=== PATIENT | female | born 1965 | race Caucasian/White ===

== ENCOUNTER 2019-09-21 12:22 | Outpatient (CLI) | payer BC ==
[~2019-09-21] VITALS: Ht 162.6 cm; Wt 110.6 kg
--- NOTE | ~2019-09-21 | HEMODYNAMI ---
PATIENT:SYL TOUSSAINT MEDICAL RECORD: [id number] : 63 LOCATION:D.CAT ADMISSION DATE: 09/21/19 Generatedon:09/21/201915:38 Patient name: SYL TOUSSAINT Patient #: [id number] SSN: [id number] : 1965 Date of study: 09/21/2019 Page: Of Hemodynamic Procedure Report Patient Data Patient Demographics Procedure consent was obtained First Name: SYL Gender: Female Last Name: NORBERT : 1965 Middle Initial: RAZA Age: 53 year(s) Patient #: [id number] Race: SSN: [id number] Additional ID: [id number] Contact details [address]: [address] [place] [address] [address]IVE State: [place] City: [place] Zip code: [address] Past Medical History Allergies Allergen Reaction Date Comments Reported Other allergy 09/21/2019 avelox Admission Admission Data Admission Date: 09/21/2019 Admission Time: 12:22 Arrival Date: 09/21/2019 Arrival Time: 0:00 Admit Source: Other Insurance Payor: Private health insurance [facility] #: [id number] Height (in.): 63.78 BSA: 2.13 (m2) Height (cm.): 162 BMI: 42.3 (kg/m2) Weight (lbs.): 244.71 Weight (kg.): 111 Lab Results Lab Result Date: 09/21/2019 Lab Result Time: 0:00 Biochemistry Name Units Result Min Max BUN mg/dl 13 --(--*-)-- 7 18 Creatinine mg/dl 0.8 --(-*--)-- 0.6 1.3 eGFR ml/min 79.42659 *-(----)-- 90 120 NONAFRICAN CBC Name Units Result Min Max Hematocrit % 40.9 -*(----)-- 42 54 Hemoglobin g/dl 13.4 -*(----)-- 13.5 17.5 Procedure Procedure Types Cath Procedure Diagnostic Procedure [facility] w/Coronaries Sedation Charges Moderate Sedation up to 30 minutes Procedure Description Procedure Date Procedure Date: 09/21/2019 Procedure Start Time: 15:09 Procedure End Time: 15:36 Procedure Staff Name Function Ferny Viveros MD Performing Physician Nora Madera RT Monitor Caroline Vega RN Nurse Ellen Zimmerman RT Scrub Indication Abnormal stress Echo Abnormal stress perfusion Procedure Data Cath Procedure Fluoroscopy Diagnostic fluoroscopy Total fluoroscopy Time: 1.7 time: 1.7 min min Diagnostic fluoroscopy Total fluoroscopy dose: dose: 225.09 mGy 225.09 mGy Contrast Material Contrast Material Type Amount (ml) Isovue 300 47 Entry Location Entry Primary Successful Side Size Upsize Upsize Entry Closure Wasserman ccessful Closure Location (Fr) 1 (Fr) 2 (Fr) Remarks Device Remarks Radial Right 6 Fr Mechanical artery Short Compression Estimated blood loss: 5 ml Diagnostic catheters Device Type Used For End Catheter Placement DIAGNOSTIC [place] 110cm 5 Procedure Fr catheter ([id number]) Procedure Complications No complications Procedure Medications Medication Administration Route Dosage 0.9% NaCl I.V. 100 ml/hr Oxygen etCO2 Nasal cannula 2 l/min Lidocaine 2% added to field 20 Heparin Flush Bag added to field 2 bags (1000units/500ml NS) Radial Cocktail added to field 1 syringe (Verapamil 2mg/Nitro 400mcg/Heparin 1500units) Versed I.V. 2 mg Fentanyl I.V. 50 mcg Versed I.V. 2 mg Fentanyl I.V. 50 mcg Versed I.V. 2 mg Hemodynamics Rest BSA: 2.13 (m2) HGB: 13.4 (g/dl) O2 Consumption: Estimated: 207.28 (ml/min) O2 Co nsumption indexed: Estimated:97.31 (ml/min/m) Heart Rate: 72 (bpm) Pressure Samples Time Site Value (mmHg) Purpose Heart Use Rate(bpm) 15:28 LV 148/-1,20 Snapshot 82 Gradients Valve Time Site Site Mean SEP/DFP Peak To Heart Use 1 2 (mmHg) (sec/min) Peak Rate (mmHg) (bpm) Aortic 15:29 LV AO 81 Snapshots Pre Cath Intra NCS Post Cath Vital Signs Time Heart Resp SPO2 etCO2 NIBP (mmHg) Rhythm Pain Sedation Rate (ipm) (%) (mmHg) Status Level (bpm) 14:45:32 69 14 99 32.1 Measuring NSR 0 (11) 10(A) , No pain 14:45:36 68 14 100 32.1 130/75(98) NSR 0 (11) 10(A) , No pain 14:49:56 66 10 100 37.4 120/71(93) NSR 0 (11) 10(A) , No pain 14:54:08 73 15 97 35.1 107/78(97) NSR 0 (11) 10(A) , No pain 14:58:22 66 16 98 33.6 104/62(78) NSR 0 (11) 10(A) , No pain 15:02:36 72 17 96 35.9 115/62(88) NSR 0 (11) 10(A) , No pain 15:06:50 71 16 96 35.9 127/67(84) NSR 0 (11) 10(A) , No pain 15:11:06 74 20 98 28.4 128/77(94) NSR 0 (11) 10(A) , No pain 15:15:20 80 18 97 32.1 103/61(81) NSR 0 (11) 10(A) , No pain 15:19:32 71 20 98 31.3 109/68(89) NSR 0 (11) 10(A) , No pain 15:23:46 69 24 96 35.8 112/66(95) NSR 0 (11) 10(A) , No pain 15:27:56 80 24 97 32.8 124/78(97) NSR 0 (11) 10(A) , No pain 15:32:10 71 20 98 32.9 116/65(95) NSR 0 (11) 10(A) , No pain 15:36:24 71 20 97 32.9 118/71(105) NSR 0 (11) 10(A) , No pain Medications Time Medication Route Dose Verified Delivered Reason Notes E ffectiveness by by 14:55:32 0.9% NaCl I.V. 100 Ferny Caroline used for ml/hr Felice Vega tube backer 14:55:39 Oxygen etCO2 2 l/min Ferny Caroline used for Nasal Felice Vega procedure cannula RN 14:55:44 Lidocaine 2% added 20ml Ferny Ferny for local to vial Felice Viveros MD anesthetic field 14:55:49 Heparin Flush added 2 bags Ferny Ferny used for Bag to Felice Viveros MD procedure (1000units/500ml field NS) 14:55:58 Radial Cocktail added 1 Ferny Ferny used for (Verapamil to syringe Felice Viveros MD procedure 2mg/Nitro field 400mcg/Heparin 1500units) 15:01:09 Fentanyl I.V. 50 mcg Ferny Caroline for Felice Vega sedation RN 15:01:55 Versed I.V. 2 mg Ferny Caroline for Felice Vega sedation RN 15:10:35 Versed I.V. 2 mg Ferny Caroline for Felice Vega sedation RN 15:10:48 Fentanyl I.V. 50 mcg Ferny Caroline for Felice Vega sedation RN 15:20:14 Versed I.V. 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 14:21:18 Nora Madera RT(R) (CV) sent for patient. Start room use. 14:21:20 Time tracking: Regular hours (M-F 7:00 - 5:00) 14:21:52 Plan of Care:Hemodynamics will remain stable., Cardiac rhythm will remain stable., Comfort level will be maintained., Respiratory function will remain adequate., Patient/ family verbilizes understanding of procedure., Procedure tolerated without complication., Recovers from procedure without complications.. 14:34:21 Patient received from Pre/Post Procedure Room to [facility] 3 Alert and oriented. Tansferred to table in Supine position. 14:34:23 Warm blankets applied, and shmuel hugger turned on for patient comfort. 14:34:24 Correct patient and procedure confirmed by team. 14:34:26 ECG and BP/O2 sat monitors applied to patient. 14:40:32 H&P Date Dictated: 09/11/2019 Within 30 days and on chart., H&P Addendum completed by physician on day of procedure. (MUST COMPLETE FOR ALL OUTPATIENTS). 14:40:34 Pre-procedure instructions explained to patient. 14:40:34 Pre-op teaching completed and patient verbalized understanding. 14:40:35 Family in patients room. 14:40:37 Patient NPO since Midnight. 14:41:33 Patient diabetic? No. 14:42:04 Previous problem with sedation/anesthesia? No ? 14:42:05 Snore? Yes 14:42:06 Sleep apnea? Yes 14:42:07 Deviated septum? No 14:42:08 Opens mouth fully? Yes 14:42:08 Sticks out tongue? Yes 14:42:10 Airway obstruction? No ? 14:42:11 Dentures? No ? 14:42:37 Pre procedure: right dorsailis pedis pulse 1+ Palpable, but thready & weak; easily obliterated 14:42:39 Modified Jonathan's test Ulnar < 7 seconds 14:42:41 Patient pain scale 0/10 ?. 14:42:48 IV patent on arrival in left hand with 0.9% NaCl at O. 14:43:18 Lab Result : BUN 13 mg/dl 14:43:18 Lab Result : Creatinine 0.8 mg/dl 14:43:18 Lab Result : eGFR NONAFRICAN 79.27160 ml/min 14:43:18 Lab Result : Hemoglobin 13.4 g/dl 14:43:18 Lab Result : Hematocrit 40.9 % 14:43:21 Lab results completed and on chart. 14:43:38 Right Radial & Right Groin area was prepped with chlora-prep and draped in sterile fashion 14:43:39 Alarms reviewed by R. N. 14:43:39 Sharps counted by scrub and verified by R.N. 14:43:43 Vital chart was started 14:43:46 Rhythm: sinus rhythm 14:43:49 Full Disclosure recording started 14:50:40 Stress Test: no; N/A ? 14:50:51 Use device set Radial Dx or PCI 14:50:53 ACIST Syringe (69284) opened to sterile field. 14:50:54 Medline Cath Pack ([id number]) opened to sterile field. 14:50:56 Bag Decanter (2002S) opened to sterile field. 14:50:57 ACIST Hand Control (54866) opened to sterile field. 14:50:58 ACIST Manifold (11132) opened to sterile field. 14:51:00 MBrace Wrist Support ([id number]) opened to sterile field. 14:51:01 NEEDLE Cook 21G 4cm Radial (L76480) opened to sterile field. 14:51:03 EMERALD Guide Wire (848-156) opened to sterile field. 14:51:04 SHEATH 6FR RAIN ([id number]) opened to sterile field. 14:55:32 0.9% NaCl 100 ml/hr I.V. was administered by Caroline Vega RN; used for procedure; Verbal order read back and verified. 14:55:39 Oxygen 2 l/min etCO2 Nasal cannula was administered by Caroline Vega RN; used for procedure; Verbal order read back and verified. 14:55:44 Lidocaine 2% 20ml vial added to field was administered by Ferny Viveros MD; for local anesthetic; Verbal order read back and verified. 14:55:49 Heparin Flush Bag (1000units/500ml NS) 2 bags added to field was administered by Ferny Viveros MD; used for procedure; Verbal order read back and verified. 14:55:58 Radial Cocktail (Verapamil 2mg/Nitro 400mcg/Heparin 1500units) 1 syringe added to field was administered by Ferny Viveros MD; used for procedure; Verbal order read back and verified. 14:59:14 Risk of Mortality: 0.1 14:59:19 Risk of blood transfusion: 0.4 14:59:24 Risk of RADHA: 0.8 14:59:33 Physician arrived 14:59:34 --------ALL STOP TIME OUT------ 14:59:35 Final Timeout: patient, procedure, and site verified with staff and physician. All members of the team are in agreement. 14:59:38 Right Radial & Right Groin site verified by team. 14:59:44 Fire Safety Assessment: A--An alcohol-based skin anteseptic being used preoperatively., C--Open oxygen or nitrous oxide is being used., D--An ESU, laser, or fiber-optic light is being used. 14:59:49 Physical assessment completed. ASA score P 2 - A patient with mild systemic disease as per Ferny Viveros MD. 14:59:57 2) 60-89 Mildly reduced kidney function, and other findings (as for stage 1) point to kidney disease. 15:00:02 Maximum allowable contrast dose (3.7 X eGFR X 0.75)219 ml. 15:00:08 Sedation plan: IV Moderate Sedation Medication:Versed, Fentanyl 15:01:01 Zero performed for pressure channel P1 15:01:09 Fentanyl 50 mcg I.V. was administered by Caroline Vega RN; for sedation; Verbal order read back and verified. 15:01:55 Versed 2 mg I.V. was administered by Caroline Vega RN; for sedation; Verbal order read back and verified. 15:02:44 Baseline sample Acquired. 15:09:16 Procedure started. 15:09:33 Local anesthetic to right radial artery with Lidocaine 2% by Ferny Viveros MD.INITIAL ACCESS ONLY 15:10:35 Versed 2 mg I.V. was administered by Caroline Vega RN; for sedation; Verbal order read back and verified. 15:10:48 Fentanyl 50 mcg I.V. was administered by Caroline Vega RN; for sedation; Verbal order read back and verified. 15:11:17 A 6 Fr Short sheath was inserted into the Right Radial artery 15:11:41 A DIAGNOSTIC [place] 110cm 5 Fr catheter ([id number]) was advanced over the wire and used for Procedure. 15:19:05 catheter is removed. 15:20:14 Versed 2 mg I.V. was administered by Caroline Vega RN; for sedation; Verbal order read back and verified. 15:25:00 THE SHEATH IS FLUSHED EVERY [address] VIVEROS. 15:28:40 THE CATHETER IS REINSERTED FOR PROCEDURE. 15:29:00 LV gram done using SIM 15:29:05 Injector settings: Ml/sec: 5, Volume: 15, 15:29:29 EF : 60 % 15:29:56 LV hemodynamics recorded. 15:30:34 LCA angiography performed. 15:30:38 Injector settings: Ml/sec: 3, Volume: 6, 15:31:40 RCA angiography performed. 15:31:49 Injector settings: Ml/sec: 3, Volume: 6, 15:32:37 Catheter removed. 15:33:00 ZEPHYR LARGE TR BAND ([id number]) opened to sterile field. 15:33:19 Sheath removed intact; hemostasis achieved with Mechanical Compression to the Right Radial artery. 15:33:23 Procedure ended.(Physican Out) 15:33:41 Contrast amount:Isovue 300 47ml. 15:33:45 Maximum allowable dose exceeded? No. 15:33:54 Fluoroscopy time 01.70 minutes. 15:34:04 Flurop Dose total: 225.09 15:34:04 Fluoroscopy dose: 225.09 mGy 15:34:18 Dose Area Product 1599.36 mGy/cm. 15:34:26 Sharps counted by scrub and verified by R.N. 15:35:03 [place] band inflated with 10cc of air. 15:35:12 Insertion/operative site no bleeding no hematoma. 15:35:20 Post right radial artery:stable 15:35:26 Post-procedure physical assessment completed. ASA score P 2 - A patient with mild systemic disease as per Ferny Viveros MD. 15:35:32 Post procedure rhythm: unchanged. 15:35:36 Estimated blood loss: 5 ml 15:35:37 Post procedure instruction explained to patient.Patient verbalizes understanding. 15:35:38 Patient needs reinforcement of post procedure teaching. 15:35:50 Procedure type changed to Cath procedure, Diagnostic procedure, LHC, [facility] w/Coronaries, Sedation Charges, Moderate Sedation up to 30 minutes 15:35:53 Procedure and supply charges have been captured, reviewed, submitted and are correct. 15:36:25 Procedure Complication : No complications 15:36:29 Vital chart was stopped 15:36:32 [facility] Findings: mild to moderate CAD (<70%) 15:36:37 Operative report dictated upon procedure completion. 15:36:38 See physician's report for complete and final results. 15:36:40 Report given to Pre/Post Procedure Room. 15:36:45 Patient transfered to Pre/Post Procedure Room with Stretcher. 15:36:48 Procedure ended. 15:36:48 Full Disclosure recording stopped 15:36:56 End room use (Document Last) Device Usage Item Name Manufacture Quantity Catalog Hospital Part Current Minima l Lot# / Number Charge Number Stock Stock Serial# Code ACIST Acist 1 53905 [id number] [id number] 20 Syringe Medical (93700) Systems Inc Medline Medline 1 [id number] 76444 748626 5 Cath Pack ([id number]) Bag Microtek 1 2001S 922102 60589 717753 5 Decanter Medical Inc. () ACIST Hand Acist 1 34917 360157 618800 964108 5 Control Medical (31826) Systems Inc ACIST Acist 1 95302 089192 752318 821865 5 Manifold Medical (19907) Systems Inc MBrace Advanced 1 140-0250-00 247472 64326 977011 5 Wrist Vascular Support Dynamics ([id number]) NEEDLE Hatsize Medical 1 [id number] 491460 179306 207203 5 21G 4cm Radial (Z60391) EMERALD Cardinal 1 502-455 761979 679413 204740 5 Guide Wire Health (502-455) SHEATH 6FR Cardinal 1 [id number] 507952 0207803 457919 5 [facility] Health (7003056) DIAGNOSTIC Terumo 1 40-0741 265166 079709 010412 5 [place] 110cm 5 Fr catheter (285533) ZEPHYR Cardinal 1 606894 087484 9988906 979643 5 LARGE TR Health BAND (249369) Signature Audit [place] Stage Time Signature Unsigned Intra-Procedure 09/21/2019 Nora 3:37:15 PM Cassy RT(R) (CV) Intra-Procedure 09/21/2019 Caroline Vega 3:37:56 PM RN Intra-Procedure 09/21/2019 Ferny Viveros MD 3:38:27 PM [facility] [address] [place] [address]
[2019-09-21] MEDS ORDERED: TOPROL XL25 MG PO (13:08)
[2019-09-21] MEDS ORDERED: TRIAMTERENE-HC1 EAC6 PO (13:08)
[2019-09-21] MEDS ORDERED: COZAAR25 MG PO (13:08)
[2019-09-21] MEDS ORDERED: LEVOTHYROXINE50 MCG PO (13:09)
[2019-09-21] MEDS ORDERED: ZOLOFT50 MG PO (13:09)
[2019-09-21] MEDS ORDERED: OMEPRAZOLE40 MG PO (13:10)
[2019-09-21 13:21] VITALS: BP 116/71; Ht 162.6 cm; Wt 110.6 kg
[2019-09-21 13:38] LABS: BASOPHILS 0.4 % (0-2); EOSINOPHILS 1.5 % (0-7); HEMATOCRIT 40.9 % (36.0-48.0); HEMOGLOBIN 13.4 g/dL (12-16); IMMATURE GRANULOCYTES 0.3 % (0-5); LYMPHOCYTES 30.7 % (15-50); MCH 30.3 pg (26.0-34.0); MCHC 32.8 g/dL (31.0-37.0); MCV 92.5 fL (80.0-100.0); MEAN PLATELET VOLUME 9.7 fL (7.4-10.4); NEUTROPHILS 58.1 % (40-80); PLATELET COUNT 347 10x3/uL (130-400); RBC 4.42 10x6/uL (4.00-5.40); RDW 14.9 % (11.5-14.5); WBC 9.3 10x3/uL (4.8-10.8)
[2019-09-21 13:56] LABS: ALT (SGPT) 26 U/L (10-68); CALC OSMOLALITY 273 mosm/kg (275-300); CALCIUM 9.4 mg/dL (8.5-10.1); CHLORIDE - SERUM 101 mmol/L (98-107); CHOL - HDL RATIO 6.3 ratio (2.3-4.1); CHOLESTEROL, TOTAL 215 mg/dL (0-200); CREATININE - SERUM 0.8 mg/dL (0.6-1.3); GLUCOSE 93 mg/dL (74-106); HDL CHOLESTEROL 34 mg/dL (32-96); LDL CHOLESTEROL 126 mg/dL (0-100); LDL-HDL RATIO 3.7 ratio (1.5-3.5); POTASSIUM - SERUM 3.4 mmol/L (3.5-5.1); SODIUM 137 mmol/L (136-145); TRIGLYCERIDE 275 mg/dL (30-200); UREA NITROGEN 13 mg/dL (7-18); eGFR NON AFRICAN AMERICAN 79 mL/min (90-120)
--- NOTE | 2019-09-21 15:46 | NUR ---
PT RECEIVED BACK TO ROOM VIA STRETCHER FOR RECOVERY. PT VERY DROWSY BUT VERBALLY AROUSABLE. PT DENIES PAIN OR DISCOMFORT. IV PATENT INFUSING VIA ORDERS. PT PLACED ON CARDIAC MONITORS AND O2 VIA NC AT 1L. HR NSR 60, BP 91/61, RR 17, SAT 97. ZYHPER BAND AND IMMOBILIZER TO R ARM/WRIST, NO BLEEDING OR S/S HEMATOMA NOTED. ARM PINK AND WARM, CAP REFILL BRISK. PT INSTRUCTED NOT TO USE ARM, SHE VERBALIZED UNDERSTANDING. AT BS, CALL LIGHT IN REACH.
--- NOTE | 2019-09-21 16:15 | NUR ---
PT RESTING COMFORTABLY, ZBAND AND IMMOBILIZER IN PLACE. NO S/S HEMATOMA. VSS. CALL LIGHT IN REACH
--- NOTE | 2019-09-21 17:00 | NUR ---
4 ADD'L CC AIR REMOVED FROM ZBAND, NO BLEEDING OR S/S HEMATOMA NOTED. VSS. PT DENIES PAIN OR NEEDS, TOLERATED SANDWICH AND DRINK W/O PROBLEMS. CALL LIGHT IN REACH, REMAINS AT BS.
--- NOTE | 2019-09-21 17:30 | NUR ---
DISCHARGE INSTRUCTIONS REVIEWED W PT AND , BOTH VERBALIZED UNDERSTANDING. IV REMOVED W CATH INTACT, MONITORS REMOVED AND PT UP TO DRESS FOR DISCHARGE. 1735 PT AMBULATED TO BR, VOIDING W/O DIFFICULITY
--- NOTE | 2019-09-21 17:44 | NUR ---
REMAINING AIR REMOVED FROM Z BAND, 2X2 AND SM TEGADERM DRESSIING APPLIED. NO BLEEDING OR S/S HEMATOMA NOTED. PT DISCHARGED VIA WC TO PRIVATE VEHICLE. PT HAD ALL BELONGINGS AND DISCHARGE PAPERWORK.
== END 2019-09-21 17:45 | disposition home or self-care (01) ==
LOC: D.CATH 12:22
PROVIDERS: ATTEND Internal Medicine Cardiovascular Disease
DX: I21.4 Non-ST elevation (NSTEMI) myocardial infarction (principal); I20.9 Angina pectoris, unspecified